=== PATIENT | male | born 1985 | race Two or more races ===

== ENCOUNTER 2018-04-04 01:17 | Inpatient (IN) | payer MEDICARE, MEDICAID ==
[~2018-04-04] VITALS: Ht 165.1 cm; Wt 102.2 kg
[2018-04-04 02:49] LABS: Basophils # (auto) 0 uL; Basophils % (auto) 0.4 % (0.0-2.0); Eosinophils # (auto) 0 uL; Eosinophils % (auto) 0.1 % (0.0-7.0); Hematocrit 32.9 % (41.0-53.0); Hemoglobin 11.2 g/dL (13.5-17.5); Lymphocytes # (auto) 1.2 uL; Lymphocytes % (auto) 12.9 % (10.0-50.0); Mean Corpuscular Hemoglobin 31.4 pg (28.0-32.0); Mean Corpuscular Volume 92.4 fL (80.0-100.0); Monocytes # (auto) 0.9 uL; Monocytes % (auto) 9.5 % (0.0-12.0); Neutrophils # (auto) 6.9 uL; Neutrophils % (auto) 77.1 % (37.0-80.0); Platelet Count (auto) 313 10^3/uL (140-450); Red Blood Cells 3.57 10^6/uL (4.5-5.90); Red Cell Distribution Width 13.2 % (11.8-14.3)
[2018-04-04] MEDS ORDERED: ONDANSETRON HCL 4 MG/2 ML VIAL IV ONE (03:00)
[2018-04-04] MEDS ORDERED: SODIUM CHLORIDE 0.9% 1,000 ML IV ONE ×2 (03:00→05:30)
[2018-04-04] MEDS ORDERED: NALBUPHINE HCL 10 MG/1ml INJECTION IV ONE (03:00)
[2018-04-04] MEDS ORDERED: cefTRIAXone 1GM/10ml IVPUSH 10 ML IV ONE (03:00)
[2018-04-04] MEDS ORDERED: ACETAMINOPHEN 325 MG TAB PO ONE (03:00)
[2018-04-04] MEDS ORDERED: SODIUM CHLORIDE 0.9% 500 ML IV ONE (04:00)
[2018-04-04 04:21] LABS: Lactic Acid w/Reflex 2.4 mmol/L (0.4-2.0)
[2018-04-04 04:38] LABS: Albumin 3.1 g/dL (3.4-5.0); Calcium 9.4 mg/dL (8.5-10.1); Potassium 3.5 mmol/L (3.5-5.1)
[2018-04-04] MEDS ORDERED: metroNIDAZOLE 500MG/100ML 100 ML IV ONE (04:45)
[2018-04-04 04:46] LABS: Bilirubin, Total 0.4 mg/dL (0.2-1.0); Total Protein 8.5 g/dL (6.4-8.2)
[2018-04-04] MEDS ORDERED: MORPHINE SULF INJ 2 MG/ML SYRINGE 1ML IV PRN (06:00)
[2018-04-04] MEDS: metroNIDAZOLE 500MG/100ML 100 ML IV SCH ×3 (06:00→22:03)
[2018-04-04] MEDS ORDERED: DEXTROSE (50%) 50ML SYRG IV PRN (06:00)
[2018-04-04] MEDS ORDERED: ACETAMINOPHEN 325 MG TAB PO PRN (06:00)
[2018-04-04] MEDS: ACCU-CHEK COMFORT CURVE STRIP VI SCH ×4 (06:00→23:45)
[2018-04-04] MEDS: InsuLIN REG 1unit/0.01ml Soln (100units/ml) SC SCH ×4 (06:00→23:45)
[2018-04-04] MEDS: SODIUM CHLORIDE 0.9% 1,000 ML IV SCH ×3 (06:00→22:03)
[2018-04-04] MEDS ORDERED: PIPERACILLIN-TAZOB 2.25GM 0.75 GM in D5W 5% 50 ML IV SCH (06:00)
[2018-04-04] MEDS ORDERED: NITROGLYCERIN 0.4 MG SL TAB SL PRN (06:00)
[2018-04-04 08:13] LABS: INR 1.07 (0.9-1.15); Partial Thromboplastin Time 33.3 sec (23.78-33.04); Prothrombin Time 11.4 sec (9.27-12.13)
[2018-04-04 08:19] LABS: Lactic Acid w/Reflex 2.7 mmol/L (0.4-2.0)
[2018-04-04] MEDS: PIPERACILLIN-TAZOB 2.25GM 50 ML IV SCH ×2 (09:01→22:03)
[2018-04-04] MEDS: MORPHINE SULF INJ 2 MG/ML SYRINGE 1ML IV PRN ×2 (09:12→16:20)
[2018-04-04 09:36] VITALS: BP 100/64
[2018-04-04 13:00] VITALS: BP 94/59
[2018-04-04 17:00] VITALS: BP 116/71
[2018-04-04] MEDS ORDERED: MULT-424 PO (17:58)
[2018-04-04] MEDS ORDERED: CALC0.5C PO (17:58)
[2018-04-04] MEDS ORDERED: GABA300C10 PO (17:58)
[2018-04-04] MEDS ORDERED: AMLO5TAB2 PO (17:58)
[2018-04-04] MEDS ORDERED: METO-159 PO (17:58)
[2018-04-04] MEDS ORDERED: SEVE800T8 PO (17:58)
[2018-04-04] MEDS ORDERED: INSUINJ2 SC ×2 (17:58)
[2018-04-04] MEDS ORDERED: LOSA100T27 PO (17:58)
[2018-04-04] MEDS ORDERED: FURO40TA4 PO (17:58)
[2018-04-04] MEDS ORDERED: CINA30TA2 PO (17:58)
[2018-04-04] MEDS ORDERED: HYDR100T22 PO (17:58)
[2018-04-04] MEDS ORDERED: INSLISPI SC (17:58)
[2018-04-04] MEDS: HYDROcodone-ACET 5/325MG TAB PO PRN ×2 (18:11→22:02)
[2018-04-04 22:00] VITALS: BP 133/83
[2018-04-05 04:54] VITALS: BP 129/78
[2018-04-05] MEDS: metroNIDAZOLE 500MG/100ML 100 ML IV SCH ×3 (06:43→22:22)
[2018-04-05] MEDS: ACCU-CHEK COMFORT CURVE STRIP VI SCH ×4 (06:44→23:45)
[2018-04-05] MEDS: InsuLIN REG 1unit/0.01ml Soln (100units/ml) SC SCH ×4 (06:44→23:56)
[2018-04-05] MEDS: SODIUM CHLORIDE 0.9% 1,000 ML IV SCH ×2 (06:44→14:00)
[2018-04-05] MEDS: HYDROcodone-ACET 5/325MG TAB PO PRN ×4 (06:52→22:21)
[2018-04-05 07:20] LABS: Basophils % (auto) 0.4 % (0.0-2.0); Eosinophils # (auto) 0 uL; Hematocrit 31.2 % (41.0-53.0); Hemoglobin 10.3 g/dL (13.5-17.5); Lymphocytes # (auto) 1.2 uL; Mean Corpuscular Hemoglobin 31.1 pg (28.0-32.0)
[2018-04-05 07:24] LABS: Potassium 4.4 mmol/L (3.5-5.1)
[2018-04-05 07:25] LABS: Basophils # (auto) 0.1 uL; Eosinophils % (auto) 0.1 % (0.0-7.0); Lymphocytes % (auto) 9.4 % (10.0-50.0); Mean Corpuscular Hgb Conc. 33.1 g/dL (32.0-36.0); Mean Corpuscular Volume 94.1 fL (80.0-100.0); Monocytes # (auto) 0.8 uL; Monocytes % (auto) 6.3 % (0.0-12.0); Neutrophils % (auto) 83.8 % (37.0-80.0); Platelet Count (auto) 303 10^3/uL (140-450); Red Blood Cells 3.32 10^6/uL (4.5-5.90); Red Cell Distribution Width 13.9 % (11.8-14.3); White Blood Cell 13.1 10^3/uL (4.4-10.8)
[2018-04-05 07:36] LABS: BUN/Creatinine Ratio 5.1; Calcium 9.5 mg/dL (8.5-10.1); Total Protein 7.6 g/dL (6.4-8.2)
[2018-04-05 07:41] LABS: Albumin 2.4 g/dL (3.4-5.0); Bilirubin, Total 0.3 mg/dL (0.2-1.0)
[2018-04-05 09:04] VITALS: BP 143/84
[2018-04-05] MEDS ORDERED: VANCOMYCIN 1GM/250ML 250 ML IV ONE (11:15)
[2018-04-05] MEDS: PIPERACILLIN-TAZOB 2.25GM 50 ML IV SCH ×2 (11:17→23:49)
[2018-04-05 13:51] VITALS: BP 128/78
[2018-04-05] MEDS: PERITONEAL DIALYSIS 2.5% SOLN 2,000 ML IP SCH ×2 (14:44→18:45)
[2018-04-05 17:00] VITALS: BP 124/77
[2018-04-05] MEDS ORDERED: INSULIN NPH Isophane (HUMAN) 1unit/0.01ml Susp(100units/ml) SC SCH (18:00)
[2018-04-05 22:00] VITALS: BP 146/76
[2018-04-05] MEDS ORDERED: HEPARIN SODIUM IP SCH (22:00)
[2018-04-05] MEDS ORDERED: [UNRECOGNIZED DRUG - OTHER] IP SCH (22:00)
[2018-04-05] MEDS ORDERED: CEFTAZIDIME IP SCH (22:00)
[2018-04-05] MEDS ORDERED: CEFAZOLIN IP SCH (22:00)
[2018-04-05] MEDS: MORPHINE SULF INJ 2 MG/ML SYRINGE 1ML IV PRN (22:22)
[2018-04-05] MEDS ORDERED: ceFAZolin 1GM/50ML 50 ML IV ONE (22:29)
[2018-04-05] MEDS ORDERED: HEPARIN 1,000 UNITS/ml 1ML VIAL ONE (22:32)
[2018-04-06] MEDS: PERITONEAL DIALYSIS 2.5% SOLN 2,000 ML IP SCH (00:25)
[2018-04-06] MEDS ORDERED: PERITONEAL DIALYSIS 2.5% SOLN 2,000 ML IP SCH ×2 (04:00→16:30)
[2018-04-06] MEDS: MORPHINE SULF INJ 2 MG/ML SYRINGE 1ML IV PRN ×4 (04:49→21:48)
[2018-04-06] MEDS: CEFAZOLIN IP SCH ×4 (04:52→21:37)
[2018-04-06] MEDS: [UNRECOGNIZED DRUG - OTHER] IP SCH ×4 (04:52→21:37)
[2018-04-06] MEDS: ACCU-CHEK COMFORT CURVE STRIP VI SCH ×4 (04:52→21:01)
[2018-04-06] MEDS: CEFTAZIDIME IP SCH ×4 (04:52→21:37)
[2018-04-06] MEDS: HEPARIN SODIUM IP SCH ×4 (04:52→21:37)
[2018-04-06 05:00] VITALS: BP 139/88
[2018-04-06] MEDS: metroNIDAZOLE 500MG/100ML 100 ML IV SCH ×3 (05:39→22:28)
[2018-04-06] MEDS: InsuLIN REG 1unit/0.01ml Soln (100units/ml) SC SCH ×4 (05:40→21:00)
[2018-04-06] MEDS ORDERED: INSULIN NPH Isophane (HUMAN) 1unit/0.01ml Susp(100units/ml) SC SCH ×2 (07:00→20:00)
[2018-04-06] MEDS ORDERED: DEXTROSE (50%) 50ML SYRG IV PRN ×2 (09:30→10:15)
[2018-04-06 09:31] VITALS: BP 132/77
[2018-04-06] MEDS: PIPERACILLIN-TAZOB 2.25GM 50 ML IV SCH ×2 (09:37→21:00)
[2018-04-06] MEDS ORDERED: InsuLIN REG 1unit/0.01ml Soln (100units/ml) SC SCH (10:00)
[2018-04-06] MEDS ORDERED: ACCU-CHEK COMFORT CURVE STRIP VI SCH (10:00)
[2018-04-06] MEDS: HYDROcodone-ACET 5/325MG TAB PO PRN ×3 (11:21→22:18)
[2018-04-06 13:38] VITALS: BP 145/87
[2018-04-06] MEDS ORDERED: [UNRECOGNIZED DRUG - OTHER] IP SCH (16:00)
[2018-04-06] MEDS ORDERED: CEFTAZIDIME IP SCH (16:00)
[2018-04-06] MEDS ORDERED: CEFAZOLIN IP SCH (16:00)
[2018-04-06] MEDS ORDERED: HEPARIN SODIUM IP SCH (16:00)
[2018-04-06 17:00] VITALS: BP 152/100
[2018-04-06 20:00] VITALS: BP 142/95
[2018-04-06] MEDS: INSULIN NPH Isophane (HUMAN) 1unit/0.01ml Susp(100units/ml) SC SCH (20:59)
[2018-04-06 22:00] VITALS: BP 142/95
[2018-04-07] VITALS (7 sets, daily range): BP systolic 137–163; BP diastolic 63–105
[2018-04-07] MEDS: HYDROcodone-ACET 5/325MG TAB PO PRN ×4 (03:38→22:38)
[2018-04-07] MEDS: MORPHINE SULF INJ 2 MG/ML SYRINGE 1ML IV PRN ×4 (03:38→22:00)
[2018-04-07] MEDS: CEFAZOLIN IP SCH ×9 (04:20→22:50)
[2018-04-07] MEDS: CEFTAZIDIME IP SCH ×9 (04:20→22:50)
[2018-04-07] MEDS: [UNRECOGNIZED DRUG - OTHER] IP SCH ×9 (04:20→22:50)
[2018-04-07] MEDS: HEPARIN SODIUM IP SCH ×9 (04:20→22:50)
[2018-04-07] MEDS: INSULIN NPH Isophane (HUMAN) 1unit/0.01ml Susp(100units/ml) SC SCH ×2 (06:36→18:24)
[2018-04-07] MEDS: ACCU-CHEK COMFORT CURVE STRIP VI SCH ×4 (06:36→22:00)
[2018-04-07] MEDS: metroNIDAZOLE 500MG/100ML 100 ML IV SCH ×3 (06:37→21:29)
[2018-04-07] MEDS: InsuLIN REG 1unit/0.01ml Soln (100units/ml) SC SCH ×4 (06:37→22:39)
[2018-04-07 07:44] LABS: Basophils # (auto) 0 uL; Basophils % (auto) 0.4 % (0.0-2.0); Eosinophils # (auto) 0.1 uL; Eosinophils % (auto) 1.6 % (0.0-7.0); Hematocrit 26.1 % (41.0-53.0); Hemoglobin 8.7 g/dL (13.5-17.5); Lymphocytes % (auto) 10.7 % (10.0-50.0); Mean Corpuscular Hemoglobin 31.8 pg (28.0-32.0); Mean Corpuscular Hgb Conc. 33.5 g/dL (32.0-36.0); Monocytes # (auto) 0.9 uL; Monocytes % (auto) 9.7 % (0.0-12.0); Neutrophils # (auto) 7.1 uL; Neutrophils % (auto) 77.6 % (37.0-80.0); Platelet Count (auto) 309 10^3/uL (140-450); Red Blood Cells 2.75 10^6/uL (4.5-5.90); White Blood Cell 9.1 10^3/uL (4.4-10.8)
[2018-04-07 08:10] LABS: Albumin 2.1 g/dL (3.4-5.0); BUN/Creatinine Ratio 5.7; Bilirubin, Total 1.2 mg/dL (0.2-1.0); Calcium 9.1 mg/dL (8.5-10.1); Potassium 3.6 mmol/L (3.5-5.1)
[2018-04-07] MEDS: ONDANSETRON HCL 4 MG/2 ML VIAL IV PRN (20:00)
[2018-04-08] MEDS: MORPHINE SULF INJ 2 MG/ML SYRINGE 1ML IV PRN (03:32)
[2018-04-08] MEDS: HYDROcodone-ACET 5/325MG TAB PO PRN ×3 (04:09→20:35)
[2018-04-08] MEDS: HEPARIN SODIUM IP SCH ×8 (04:18→17:00)
[2018-04-08] MEDS: CEFAZOLIN IP SCH ×8 (04:18→17:00)
[2018-04-08] MEDS: CEFTAZIDIME IP SCH ×8 (04:18→17:00)
[2018-04-08] MEDS: [UNRECOGNIZED DRUG - OTHER] IP SCH ×8 (04:18→17:00)
[2018-04-08 05:00] VITALS: BP 151/92
[2018-04-08 05:38] LABS: Basophils # (auto) 0.1 uL; Basophils % (auto) 0.6 % (0.0-2.0); Eosinophils # (auto) 0.3 uL; Eosinophils % (auto) 3.1 % (0.0-7.0); Hematocrit 26.2 % (41.0-53.0); Hemoglobin 8.9 g/dL (13.5-17.5); Lymphocytes # (auto) 0.8 uL; Lymphocytes % (auto) 8.1 % (10.0-50.0); Mean Corpuscular Hemoglobin 32.1 pg (28.0-32.0); Mean Corpuscular Hgb Conc. 34.1 g/dL (32.0-36.0); Mean Corpuscular Volume 94.3 fL (80.0-100.0); Neutrophils # (auto) 8.1 uL; Neutrophils % (auto) 78.2 % (37.0-80.0); Platelet Count (auto) 334 10^3/uL (140-450); Red Blood Cells 2.78 10^6/uL (4.5-5.90); White Blood Cell 10.3 10^3/uL (4.4-10.8)
[2018-04-08 06:04] LABS: Albumin 2.1 g/dL (3.4-5.0); BUN/Creatinine Ratio 5.6; Calcium 9.2 mg/dL (8.5-10.1); Potassium 3.1 mmol/L (3.5-5.1); Total Protein 6.9 g/dL (6.4-8.2)
[2018-04-08] MEDS: metroNIDAZOLE 500MG/100ML 100 ML IV SCH ×3 (06:26→21:34)
[2018-04-08] MEDS: ACCU-CHEK COMFORT CURVE STRIP VI SCH ×4 (06:27→21:53)
[2018-04-08] MEDS: InsuLIN REG 1unit/0.01ml Soln (100units/ml) SC SCH ×4 (06:39→21:53)
[2018-04-08] MEDS: INSULIN NPH Isophane (HUMAN) 1unit/0.01ml Susp(100units/ml) SC SCH ×2 (06:39→17:37)
[2018-04-08 08:30] VITALS: BP 143/93
[2018-04-08 09:00] VITALS: BP 143/93
[2018-04-08 12:52] VITALS: BP 139/91
[2018-04-08 17:00] VITALS: BP 154/97
[2018-04-08] MEDS ORDERED: EPOETIN ALFA 10,000 UNIT/1 ML VIAL IV ONE (20:00)
[2018-04-08] MEDS ORDERED: SODIUM CHL 0.9% 1000 ML BAG XX ONE (20:00)
[2018-04-08] MEDS: LEVOFLOXACIN 250MG 50 ML IV SCH (20:19)
[2018-04-08] MEDS: ONDANSETRON HCL 4 MG/2 ML VIAL IV PRN (20:32)
[2018-04-08 22:00] VITALS: BP 155/95
[2018-04-08] MEDS: cefTAZidime 1 GM in SODIUM CHL 0.9% 50 ML IV SCH (22:51)
[2018-04-09] MEDS: HYDROcodone-ACET 5/325MG TAB PO PRN (02:21)
[2018-04-09] MEDS: metroNIDAZOLE 500MG/100ML 100 ML IV SCH ×3 (04:58→22:00)
[2018-04-09 05:53] LABS: Hematocrit 27.2 % (41.0-53.0); Hemoglobin 8.9 g/dL (13.5-17.5); Mean Corpuscular Hemoglobin 30.7 pg (28.0-32.0); Mean Corpuscular Hgb Conc. 32.7 g/dL (32.0-36.0); Mean Corpuscular Volume 93.9 fL (80.0-100.0); Platelet Count (auto) 377 10^3/uL (140-450); Red Cell Distribution Width 14.2 % (11.8-14.3)
[2018-04-09 05:59] LABS: Basophils % (manual) 0 (0.0-2.0); Blast Cells 0; Metamyelocytes % 0; Myelocytes % 0; Promyelocytes % 0; Reactive Lymphocytes 0
[2018-04-09 06:00] VITALS: BP 141/88
[2018-04-09 06:08] LABS: INR 1.23 (0.9-1.15); Partial Thromboplastin Time 31.2 sec (23.78-33.04)
[2018-04-09 06:32] LABS: Albumin 2.1 g/dL (3.4-5.0); BUN/Creatinine Ratio 5.5; Calcium 9.2 mg/dL (8.5-10.1)
[2018-04-09 06:38] LABS: Potassium 2.9 mmol/L (3.5-5.1)
[2018-04-09 06:44] LABS: Band Neutrophils % (manual) 1; Eosinophils % (manual) 2 (0-7); Lymphocytes % (manual) 13 (10.0-50.0); Monocytes % (manual) 13 (0-12)
[2018-04-09] MEDS: cefTAZidime 1 GM in SODIUM CHL 0.9% 50 ML IV SCH ×2 (06:52→14:26)
[2018-04-09] MEDS: ACCU-CHEK COMFORT CURVE STRIP VI SCH ×4 (06:52→22:32)
[2018-04-09] MEDS: INSULIN NPH Isophane (HUMAN) 1unit/0.01ml Susp(100units/ml) SC SCH ×2 (06:52→18:00)
[2018-04-09] MEDS: InsuLIN REG 1unit/0.01ml Soln (100units/ml) SC SCH ×4 (06:53→22:00)
[2018-04-09] MEDS ORDERED: POTASSIUM CHL 20 Meq TABLET PO ONE (07:00)
[2018-04-09] MEDS: Pro-Stat SF 30ml Vanilla PO SCH ×2 (08:00→18:15)
[2018-04-09 09:00] VITALS: BP 141/93
[2018-04-09 13:00] VITALS: BP 157/94
[2018-04-09 16:54] VITALS: BP 170/92
[2018-04-09] MEDS ORDERED: cefTAZidime 1 GM in SODIUM CHL 0.9% 50 ML IV PRN (17:30)
[2018-04-09 22:04] VITALS: BP 152/93
[2018-04-10 04:51] VITALS: BP 147/93
[2018-04-10] MEDS: INSULIN NPH Isophane (HUMAN) 1unit/0.01ml Susp(100units/ml) SC SCH ×2 (05:49→18:00)
[2018-04-10] MEDS: ACCU-CHEK COMFORT CURVE STRIP VI SCH ×4 (05:49→22:00)
[2018-04-10] MEDS: metroNIDAZOLE 500MG/100ML 100 ML IV SCH ×3 (05:49→21:57)
[2018-04-10] MEDS: InsuLIN REG 1unit/0.01ml Soln (100units/ml) SC SCH ×4 (05:50→22:00)
[2018-04-10] MEDS ORDERED: POVIDONE IODINE 10 % TOPICAL OINT 30GM TOP ONE (06:57)
[2018-04-10] MEDS ORDERED: LIDOCAINE 1% HCL (LOCAL ANESTH.) INJ 20ML MDV ONE (06:57)
[2018-04-10 07:11] LABS: INR 1.49 (0.9-1.15); Partial Thromboplastin Time 25.7 sec (23.78-33.04); Prothrombin Time 15.6 sec (9.27-12.13)
[2018-04-10] MEDS ORDERED: ONDANSETRON HCL 4 MG/2 ML VIAL ONE (07:11)
[2018-04-10] MEDS ORDERED: METOPROLOL TARTRATE 1MG/1ML-5ML VIAL IV ONE (07:11)
[2018-04-10] MEDS ORDERED: ePHEDrine SULFATE 50 MG/ML AMP ONE (07:11)
[2018-04-10] MEDS ORDERED: PHENYLEPHRINE HCL 10 MG/ML VL ONE (07:11)
[2018-04-10] MEDS ORDERED: METOCLOPRAMIDE HCL 5MG/ml INJ 2ml VIAL ONE (07:11)
[2018-04-10] MEDS ORDERED: PROPOFOL 10 MG/ML 20 ML IV ONE (07:11)
[2018-04-10] MEDS ORDERED: fentaNYL CITRATE 100 MCG/2 ML VL ONE (07:11)
[2018-04-10] MEDS ORDERED: SODIUM CHLORIDE LOCK 20 ML ONE (07:14)
[2018-04-10] MEDS ORDERED: CISATRACURIUM BESYLATE (2MG/ML) 5ML VIAL IV ONE (07:21)
[2018-04-10] MEDS ORDERED: HEPARIN 1,000 UNITS/ml 1ML VIAL ONE (07:25)
[2018-04-10 07:41] LABS: Basophils # (auto) 0 uL; Basophils % (auto) 0.1 % (0.0-2.0); Eosinophils # (auto) 0.1 uL; Eosinophils % (auto) 0.8 % (0.0-7.0); Hematocrit 27.6 % (41.0-53.0); Hemoglobin 9.3 g/dL (13.5-17.5); Lymphocytes # (auto) 1.2 uL; Lymphocytes % (auto) 6.3 % (10.0-50.0); Mean Corpuscular Hemoglobin 31.5 pg (28.0-32.0); Mean Corpuscular Hgb Conc. 33.7 g/dL (32.0-36.0); Mean Corpuscular Volume 93.5 fL (80.0-100.0); Monocytes # (auto) 1.5 uL; Monocytes % (auto) 8.1 % (0.0-12.0); Neutrophils # (auto) 16.2 uL; Neutrophils % (auto) 84.7 % (37.0-80.0); Platelet Count (auto) 451 10^3/uL (140-450); Red Blood Cells 2.96 10^6/uL (4.5-5.90); Red Cell Distribution Width 14.1 % (11.8-14.3); White Blood Cell 19.2 10^3/uL (4.4-10.8)
[2018-04-10] MEDS: Pro-Stat SF 30ml Vanilla PO SCH ×2 (08:00→18:45)
[2018-04-10 08:03] LABS: Albumin 2.2 g/dL (3.4-5.0); BUN/Creatinine Ratio 5.4; Bilirubin, Total 0.8 mg/dL (0.2-1.0); Calcium 9.5 mg/dL (8.5-10.1); Potassium 3.8 mmol/L (3.5-5.1); Total Protein 7.2 g/dL (6.4-8.2)
[2018-04-10] MEDS ORDERED: ceFAZolin 1GM/50ML 100 ML IV ONE (08:34)
[2018-04-10] MEDS ORDERED: NEOSTIGMINE 1 MG/ML INJ (10mg/10ML VIAL) ONE ×2 (09:07→09:08)
[2018-04-10] MEDS ORDERED: GLYCOPYRROLATE 0.2 MG/ML 1ML VIAL ONE ×2 (09:07→09:08)
[2018-04-10] MEDS ORDERED: ePHEDrine SULFATE 50 MG/ML AMP IV PRN (09:45)
[2018-04-10] MEDS ORDERED: LABETALOL HCL 5 MG/ML 4ML SYRINGE IV PRN (09:45)
[2018-04-10] MEDS ORDERED: ACCU-CHEK COMFORT CURVE STRIP VI ONE (09:45)
[2018-04-10] MEDS ORDERED: METOCLOPRAMIDE HCL 5MG/ml INJ 2ml VIAL IV ONE (09:45)
[2018-04-10] MEDS ORDERED: ONDANSETRON HCL 4 MG/2 ML VIAL IV ONE (09:45)
[2018-04-10] MEDS ORDERED: KETOROLAC TROMETH 30 MG/ML 1ML VIAL IV ONE (09:45)
[2018-04-10] MEDS ORDERED: NALOXONE HCL 0.4 MG/ML VIAL IV PRN (09:45)
[2018-04-10] MEDS ORDERED: hydrALAZINE HCL 20 MG/ML VL IV PRN (09:45)
[2018-04-10] MEDS ORDERED: fentaNYL CITRATE 100 MCG/2 ML VL IV ONE (10:00)
[2018-04-10 13:00] VITALS: BP 166/90
[2018-04-10 17:00] VITALS: BP 154/84
[2018-04-10 21:54] VITALS: BP 162/91
[2018-04-10] MEDS: LEVOFLOXACIN 250MG 50 ML IV SCH (21:57)
[2018-04-11 04:42] VITALS: BP 151/92
[2018-04-11] MEDS: metroNIDAZOLE 500MG/100ML 100 ML IV SCH ×3 (05:00→21:48)
[2018-04-11] MEDS: ACCU-CHEK COMFORT CURVE STRIP VI SCH ×4 (06:15→21:52)
[2018-04-11] MEDS: INSULIN NPH Isophane (HUMAN) 1unit/0.01ml Susp(100units/ml) SC SCH ×2 (06:15→18:27)
[2018-04-11] MEDS: InsuLIN REG 1unit/0.01ml Soln (100units/ml) SC SCH ×4 (06:15→21:52)
[2018-04-11] MEDS ORDERED: LIDOCAINE 2%HCL (LOCAL ANESTH.) INJ 10ml MDV ONE (07:58)
[2018-04-11] MEDS: Pro-Stat SF 30ml Vanilla PO SCH ×2 (08:00→18:25)
[2018-04-11] MEDS ORDERED: MIDAZOLAM HCL 1MG/1ML-2 ML VIAL ONE (08:33)
[2018-04-11] MEDS ORDERED: fentaNYL CITRATE 100 MCG/2 ML VL ONE (08:33)
[2018-04-11] MEDS ORDERED: HEPARIN SODIUM (PORCINE) 5000 UNITS/ML 1ML VIAL ONE (08:41)
[2018-04-11 09:00] VITALS: BP 167/95
[2018-04-11] MEDS ORDERED: METOPROLOL TARTRATE 1MG/1ML-5ML VIAL IV ONE (09:02)
[2018-04-11 13:00] VITALS: BP 140/79
[2018-04-11 17:00] VITALS: BP 127/90
[2018-04-11] MEDS ORDERED: EPOETIN ALFA 10,000 UNIT/1 ML VIAL IV ONE (17:30)
[2018-04-11] MEDS: FUROSEMIDE 40 MG TAB PO SCH (18:26)
[2018-04-11] MEDS: HYDROcodone-ACET 5/325MG TAB PO PRN (19:05)
[2018-04-11 21:47] VITALS: BP 183/103
[2018-04-11] MEDS: METOPROLOL TARTRATE 50 MG TAB PO SCH (21:51)
[2018-04-11] MEDS: hydrALAZINE HCL 25 MG TAB PO SCH (21:52)
[2018-04-11] MEDS: MORPHINE SULF INJ 2 MG/ML SYRINGE 1ML IV PRN (22:49)
[2018-04-12 05:01] VITALS: BP 171/96
[2018-04-12] MEDS: metroNIDAZOLE 500MG/100ML 100 ML IV SCH ×3 (05:08→21:17)
[2018-04-12] MEDS: MORPHINE SULF INJ 2 MG/ML SYRINGE 1ML IV PRN (05:37)
[2018-04-12] MEDS: FUROSEMIDE 40 MG TAB PO SCH ×2 (05:38→17:27)
[2018-04-12 06:36] LABS: Basophils # (auto) 0.1 uL; Hematocrit 25.6 % (41.0-53.0); Hemoglobin 8.4 g/dL (13.5-17.5); Mean Corpuscular Hgb Conc. 32.8 g/dL (32.0-36.0); Monocytes # (auto) 1.6 uL; Neutrophils # (auto) 18.7 uL
[2018-04-12 06:38] LABS: Basophils % (auto) 0.4 % (0.0-2.0); Eosinophils # (auto) 0.2 uL; Eosinophils % (auto) 0.7 % (0.0-7.0); Lymphocytes % (auto) 4.7 % (10.0-50.0); Mean Corpuscular Hemoglobin 30.6 pg (28.0-32.0); Mean Corpuscular Volume 93.4 fL (80.0-100.0); Monocytes % (auto) 7.4 % (0.0-12.0); Neutrophils % (auto) 86.8 % (37.0-80.0); Platelet Count (auto) 459 10^3/uL (140-450); Red Blood Cells 2.74 10^6/uL (4.5-5.90); Red Cell Distribution Width 14.2 % (11.8-14.3); White Blood Cell 21.6 10^3/uL (4.4-10.8)
[2018-04-12] MEDS: ACCU-CHEK COMFORT CURVE STRIP VI SCH ×4 (06:52→21:43)
[2018-04-12] MEDS: INSULIN NPH Isophane (HUMAN) 1unit/0.01ml Susp(100units/ml) SC SCH ×2 (06:52→17:27)
[2018-04-12] MEDS: InsuLIN REG 1unit/0.01ml Soln (100units/ml) SC SCH ×4 (06:52→21:42)
[2018-04-12] MEDS: HYDROcodone-ACET 5/325MG TAB PO PRN (06:55)
[2018-04-12 07:06] LABS: BUN/Creatinine Ratio 4.7; Bilirubin, Total 0.7 mg/dL (0.2-1.0); Potassium 3.1 mmol/L (3.5-5.1); Total Protein 7.1 g/dL (6.4-8.2)
[2018-04-12] MEDS: Pro-Stat SF 30ml Vanilla PO SCH ×2 (07:43→17:26)
[2018-04-12] MEDS: cloNIDine HCL 0.1 MG TAB PO PRN ×2 (08:10→12:06)
[2018-04-12 08:34] VITALS: BP 175/96
[2018-04-12] MEDS: cefTAZidime 1 GM in SODIUM CHL 0.9% 50 ML IV SCH (12:06)
[2018-04-12] MEDS: LOSARTAN POTASSIUM 50 MG TAB PO SCH (12:07)
[2018-04-12] MEDS: hydrALAZINE HCL 25 MG TAB PO SCH ×2 (12:07→21:17)
[2018-04-12] MEDS: amLODIPine BESYLATE 5 MG TAB PO SCH (12:08)
[2018-04-12] MEDS: METOPROLOL TARTRATE 50 MG TAB PO SCH ×2 (12:08→21:16)
[2018-04-12 12:41] VITALS: BP 159/96
[2018-04-12] MEDS ORDERED: DOCUSATE SOD 100 MG CAP PO PRN (14:15)
[2018-04-12 16:51] VITALS: BP 136/83
[2018-04-12] MEDS: LEVOFLOXACIN 250MG 50 ML IV SCH (21:17)
[2018-04-12 21:35] VITALS: BP 154/91
[2018-04-13 05:00] VITALS: BP 143/85
[2018-04-13] MEDS: InsuLIN REG 1unit/0.01ml Soln (100units/ml) SC SCH ×4 (05:37→22:00)
[2018-04-13] MEDS: FUROSEMIDE 40 MG TAB PO SCH ×2 (05:37→17:49)
[2018-04-13] MEDS: metroNIDAZOLE 500MG/100ML 100 ML IV SCH ×3 (05:37→22:55)
[2018-04-13] MEDS: ACCU-CHEK COMFORT CURVE STRIP VI SCH ×3 (05:38→17:56)
[2018-04-13] MEDS: INSULIN NPH Isophane (HUMAN) 1unit/0.01ml Susp(100units/ml) SC SCH ×2 (05:38→17:57)
[2018-04-13 06:39] LABS: Hemoglobin 8.3 g/dL (13.5-17.5)
[2018-04-13 06:41] LABS: Basophils # (auto) 0 uL; Basophils % (auto) 0.2 % (0.0-2.0); Eosinophils # (auto) 0.1 uL; Eosinophils % (auto) 0.7 % (0.0-7.0); Hematocrit 24.9 % (41.0-53.0); Lymphocytes # (auto) 1.1 uL; Lymphocytes % (auto) 5.2 % (10.0-50.0); Mean Corpuscular Hemoglobin 31.4 pg (28.0-32.0); Mean Corpuscular Hgb Conc. 33.4 g/dL (32.0-36.0); Mean Corpuscular Volume 93.9 fL (80.0-100.0); Monocytes # (auto) 1.6 uL; Monocytes % (auto) 7.5 % (0.0-12.0); Neutrophils # (auto) 18.1 uL; Neutrophils % (auto) 86.4 % (37.0-80.0); Platelet Count (auto) 439 10^3/uL (140-450); Red Blood Cells 2.65 10^6/uL (4.5-5.90); Red Cell Distribution Width 14.4 % (11.8-14.3); White Blood Cell 20.9 10^3/uL (4.4-10.8)
[2018-04-13 06:54] LABS: Albumin 1.9 g/dL (3.4-5.0); BUN/Creatinine Ratio 5.3; Calcium 8.9 mg/dL (8.5-10.1); Potassium 3.2 mmol/L (3.5-5.1)
[2018-04-13 07:04] LABS: Bilirubin, Total 0.6 mg/dL (0.2-1.0); Total Protein 7.1 g/dL (6.4-8.2)
[2018-04-13] MEDS: Pro-Stat SF 30ml Vanilla PO SCH ×2 (08:01→17:49)
[2018-04-13 09:00] VITALS: BP 147/84
[2018-04-13] MEDS: cefTAZidime 1 GM in SODIUM CHL 0.9% 50 ML IV SCH (11:22)
[2018-04-13] MEDS: METOPROLOL TARTRATE 50 MG TAB PO SCH ×2 (11:23→22:58)
[2018-04-13] MEDS: hydrALAZINE HCL 25 MG TAB PO SCH ×2 (11:23→22:58)
[2018-04-13] MEDS: LOSARTAN POTASSIUM 50 MG TAB PO SCH (11:24)
[2018-04-13] MEDS: amLODIPine BESYLATE 5 MG TAB PO SCH (11:25)
[2018-04-13 13:00] VITALS: BP 140/78
[2018-04-13 17:00] VITALS: BP 128/77
[2018-04-13] MEDS ORDERED: cefTAZidime 1 GM in SODIUM CHL 0.9% 50 ML IV SCH (17:00)
[2018-04-13 22:00] VITALS: BP 145/80
[2018-04-14] MEDS: ACCU-CHEK COMFORT CURVE STRIP VI SCH ×5 (00:11→21:31)
[2018-04-14 05:00] VITALS: BP_SYST 141; BP_SYST 147; BP_DIAS 84; BP_DIAS 85
[2018-04-14] MEDS: metroNIDAZOLE 500MG/100ML 100 ML IV SCH ×3 (05:42→21:30)
[2018-04-14] MEDS: InsuLIN REG 1unit/0.01ml Soln (100units/ml) SC SCH ×4 (05:43→21:31)
[2018-04-14] MEDS: INSULIN NPH Isophane (HUMAN) 1unit/0.01ml Susp(100units/ml) SC SCH ×2 (05:43→18:53)
[2018-04-14 05:47] LABS: Basophils # (auto) 0.1 uL; Eosinophils # (auto) 0.3 uL; Eosinophils % (auto) 1.6 % (0.0-7.0); Monocytes # (auto) 1.5 uL
[2018-04-14 05:51] LABS: Basophils % (auto) 0.5 % (0.0-2.0); Hematocrit 25.8 % (41.0-53.0); Hemoglobin 8.4 g/dL (13.5-17.5); Lymphocytes # (auto) 1.4 uL; Lymphocytes % (auto) 7.4 % (10.0-50.0); Mean Corpuscular Hemoglobin 30.7 pg (28.0-32.0); Mean Corpuscular Hgb Conc. 32.7 g/dL (32.0-36.0); Monocytes % (auto) 7.8 % (0.0-12.0); Neutrophils # (auto) 15.6 uL; Neutrophils % (auto) 82.7 % (37.0-80.0); Platelet Count (auto) 462 10^3/uL (140-450); Red Blood Cells 2.74 10^6/uL (4.5-5.90); Red Cell Distribution Width 14.2 % (11.8-14.3); White Blood Cell 18.8 10^3/uL (4.4-10.8)
[2018-04-14] MEDS: FUROSEMIDE 40 MG TAB PO SCH ×2 (06:00→18:52)
[2018-04-14 06:14] LABS: Albumin 1.9 g/dL (3.4-5.0); BUN/Creatinine Ratio 5.9; Potassium 3.9 mmol/L (3.5-5.1)
[2018-04-14 06:21] LABS: Bilirubin, Total 0.6 mg/dL (0.2-1.0); Total Protein 6.8 g/dL (6.4-8.2)
[2018-04-14 08:00] VITALS: BP 152/88
[2018-04-14] MEDS: Pro-Stat SF 30ml Vanilla PO SCH ×2 (08:00→18:00)
[2018-04-14] MEDS ORDERED: SODIUM CHL 0.9% 1000 ML BAG XX ONE (08:15)
[2018-04-14] MEDS: hydrALAZINE HCL 25 MG TAB PO SCH ×2 (10:00→21:33)
[2018-04-14] MEDS: METOPROLOL TARTRATE 50 MG TAB PO SCH ×2 (12:11→21:31)
[2018-04-14] MEDS: LOSARTAN POTASSIUM 50 MG TAB PO SCH (12:11)
[2018-04-14] MEDS: amLODIPine BESYLATE 5 MG TAB PO SCH (12:12)
[2018-04-14 12:42] VITALS: BP 137/73
[2018-04-14] MEDS: ALUM & MAG HYDROX-SIMETH LIQ(MAALOX) 30 ML PO PRN ×2 (15:42→21:30)
[2018-04-14] MEDS ORDERED: cefTAZidime 1 GM in SODIUM CHL 0.9% 50 ML IV SCH (16:00)
[2018-04-14] MEDS ORDERED: cefTAZidime 1 GM in SODIUM CHL 0.9% 50 ML IV ONE (17:00)
[2018-04-14 17:51] VITALS: BP 120/75
[2018-04-14] MEDS: LEVOFLOXACIN 250MG 50 ML IV SCH (21:30)
[2018-04-14] MEDS: HYDROcodone-ACET 5/325MG TAB PO PRN (21:32)
[2018-04-14 22:56] VITALS: BP 126/79
[2018-04-15 05:00] VITALS: BP 128/81
[2018-04-15] MEDS: FUROSEMIDE 40 MG TAB PO SCH (05:34)
[2018-04-15] MEDS: metroNIDAZOLE 500MG/100ML 100 ML IV SCH ×2 (05:35→13:10)
[2018-04-15] MEDS: InsuLIN REG 1unit/0.01ml Soln (100units/ml) SC SCH ×2 (05:37→12:18)
[2018-04-15] MEDS: INSULIN NPH Isophane (HUMAN) 1unit/0.01ml Susp(100units/ml) SC SCH (05:39)
[2018-04-15] MEDS: ACCU-CHEK COMFORT CURVE STRIP VI SCH ×2 (05:41→11:25)
[2018-04-15] MEDS: Pro-Stat SF 30ml Vanilla PO SCH (07:10)
[2018-04-15 07:28] LABS: Basophils # (auto) 0.1 uL; Hemoglobin 8.8 g/dL (13.5-17.5); Monocytes # (auto) 1.4 uL; Neutrophils # (auto) 16.1 uL
[2018-04-15 07:30] LABS: Basophils % (auto) 0.5 % (0.0-2.0); Eosinophils # (auto) 0.1 uL; Eosinophils % (auto) 0.6 % (0.0-7.0); Hematocrit 26.9 % (41.0-53.0); Lymphocytes # (auto) 1.7 uL; Lymphocytes % (auto) 8.8 % (10.0-50.0); Mean Corpuscular Hemoglobin 30.8 pg (28.0-32.0); Mean Corpuscular Hgb Conc. 32.8 g/dL (32.0-36.0); Mean Corpuscular Volume 93.7 fL (80.0-100.0); Monocytes % (auto) 7.3 % (0.0-12.0); Neutrophils % (auto) 82.8 % (37.0-80.0); Platelet Count (auto) 526 10^3/uL (140-450); Red Blood Cells 2.86 10^6/uL (4.5-5.90); Red Cell Distribution Width 14.2 % (11.8-14.3); White Blood Cell 19.4 10^3/uL (4.4-10.8)
[2018-04-15 07:47] LABS: Albumin 2.2 g/dL (3.4-5.0); BUN/Creatinine Ratio 5.7; Bilirubin, Total 0.9 mg/dL (0.2-1.0); Calcium 9.2 mg/dL (8.5-10.1); Potassium 3.2 mmol/L (3.5-5.1); Total Protein 7.6 g/dL (6.4-8.2)
[2018-04-15 08:00] VITALS: BP 119/72
[2018-04-15] MEDS: ALUM & MAG HYDROX-SIMETH LIQ(MAALOX) 30 ML PO PRN ×2 (09:14→15:22)
[2018-04-15] MEDS: hydrALAZINE HCL 25 MG TAB PO SCH (09:15)
[2018-04-15] MEDS: amLODIPine BESYLATE 5 MG TAB PO SCH (09:15)
[2018-04-15] MEDS: LOSARTAN POTASSIUM 50 MG TAB PO SCH (09:16)
[2018-04-15] MEDS: METOPROLOL TARTRATE 50 MG TAB PO SCH (09:16)
[2018-04-15 12:06] VITALS: BP 137/80
[2018-04-15 15:28] VITALS: BP 137/80
== END 2018-04-15 16:15 | disposition home or self-care (01) | DRG 981 ==
LOC: TELE-CENTR 09:43
PROVIDERS: ADMIT Nurse Practitioner; ATTEND Family Medicine
PROC: 3E1M39Z Irrigation of Peritoneal Cavity using Dialysate, Percutaneous Approach (ICD-10-PCS; principal; 2018-04-04)
PROC: 0WPG03Z Removal of Infusion Device from Peritoneal Cavity, Open Approach (ICD-10-PCS; 2018-04-10)
PROC: 5A1D70Z Performance of Urinary Filtration, Intermittent, Less than 6 Hours Per Day (ICD-10-PCS; 2018-04-11)
PROC: 0JH63XZ Insertion of Tunneled Vascular Access Device into Chest Subcutaneous Tissue and Fascia, Percutaneous Approach (ICD-10-PCS; 2018-04-11)
PROC: 02H633Z Insertion of Infusion Device into Right Atrium, Percutaneous Approach (ICD-10-PCS; 2018-04-11)
PROC: B2141ZZ Fluoroscopy of Right Heart using Low Osmolar Contrast (ICD-10-PCS; 2018-04-11)
PROC: B244YZZ Ultrasonography of Right Heart using Other Contrast (ICD-10-PCS; 2018-04-11)
PROC: 5A1D70Z Performance of Urinary Filtration, Intermittent, Less than 6 Hours Per Day (ICD-10-PCS; 2018-04-14)
DX: T85.71XA Infection and inflammatory reaction due to peritoneal dialysis catheter, initial encounter (principal); A41.9 Sepsis, unspecified organism; N18.6 End stage renal disease; R65.21 Severe sepsis with septic shock; K65.9 Peritonitis, unspecified; I13.2 Hypertensive heart and chronic kidney disease with heart failure and with stage 5 chronic kidney disease, or end stage renal disease; Y84.8 Other medical procedures as the cause of abnormal reaction of the patient, or of later complication, without mention of misadventure at the time of the procedure; Y92.89 Other specified places as the place of occurrence of the external cause; D64.9 Anemia, unspecified; I50.9 Heart failure, unspecified; E11.21 Type 2 diabetes mellitus with diabetic nephropathy; B96.89 Other specified bacterial agents as the cause of diseases classified elsewhere; K21.9 Gastro-esophageal reflux disease without esophagitis; B96.1 Klebsiella pneumoniae [K. pneumoniae] as the cause of diseases classified elsewhere; E11.22 Type 2 diabetes mellitus with diabetic chronic kidney disease; E11.319 Type 2 diabetes mellitus with unspecified diabetic retinopathy without macular edema; E11.40 Type 2 diabetes mellitus with diabetic neuropathy, unspecified; E66.01 Morbid (severe) obesity due to excess calories; Z82.49 Family history of ischemic heart disease and other diseases of the circulatory system; E87.6 Hypokalemia; Z83.3 Family history of diabetes mellitus; Z99.2 Dependence on renal dialysis; Z82.0 Family history of epilepsy and other diseases of the nervous system; Z79.4 Long term (current) use of insulin
CPT/HCPCS: 36415; 71045; 71250; 74176; 76000; 76705; 76942; 77002; 80053; 82962; 83036; 83605; 85007; 85025; 85027; 85610; 85730; 86850; 86900; 86901; 87040; 87070; 87077; 87081; 87086; 87186; 87340; 89051; 90935; 96361; 96365; 96375; 99152; A6257; J0690; J0696; J0885; J1642; J1815; J2001; J2250; J2405; J2543; J2704; J3490

== ENCOUNTER 2018-04-25 15:40 | Inpatient (IN) | payer MEDICARE, MEDICAID ==
[~2018-04-25] VITALS: Ht 165.1 cm; Wt 93.0 kg
[~2018-04-25 15:40] MED LIST: AMLO5TAB2 PO; CALC0.5C PO; CINA30TA2 PO; FURO40TA4 PO; GABA300C10 PO; HYDR100T22 PO; INSLISPI SC; INSUINJ2 SC; LOSA100T27 PO; METO-159 PO; MULT-424 PO; SEVE800T8 PO
[2018-04-25] MEDS ORDERED: METOPROLOL TARTRATE 1MG/1ML-5ML VIAL IV ONE (16:45)
[2018-04-25] MEDS ORDERED: LORazepam 0.5 MG TAB PO ONE (16:45)
[2018-04-25 17:06] LABS: Basophils # (auto) 0.1 uL; Basophils % (auto) 0.6 % (0.0-2.0); Eosinophils # (auto) 0.1 uL; Eosinophils % (auto) 0.6 % (0.0-7.0); Hematocrit 27.7 % (41.0-53.0); Hemoglobin 8.9 g/dL (13.5-17.5); Mean Corpuscular Volume 95.6 fL (80.0-100.0); Monocytes # (auto) 1.8 uL; White Blood Cell 15.4 10^3/uL (4.4-10.8)
[2018-04-25 17:07] LABS: Lymphocytes # (auto) 1.8 uL; Lymphocytes % (auto) 11.9 % (10.0-50.0); Mean Corpuscular Hemoglobin 30.8 pg (28.0-32.0); Mean Corpuscular Hgb Conc. 32.2 g/dL (32.0-36.0); Monocytes % (auto) 11.6 % (0.0-12.0); Neutrophils # (auto) 11.6 uL; Neutrophils % (auto) 75.3 % (37.0-80.0); Platelet Count (auto) 574 10^3/uL (140-450); Red Cell Distribution Width 14.2 % (11.8-14.3)
[2018-04-25 17:18] LABS: Alanine Aminotransferase 12 U/L (16-61); Albumin 2.6 g/dL (3.4-5.0); Anion Gap 22 (5-15); Aspartate Aminotransferase 11 U/L (15-37); BUN/Creatinine Ratio 3.4; Blood Urea Nitrogen 24 mg/dL (7-18); Calcium 8.9 mg/dL (8.5-10.1); Carbon Dioxide 22 mmol/L (21-32); Chloride 90 mmol/L (98-107); GFR African American 12 mL/min; GFR Non-African American 10 mL/min; Glucose 300 mg/dL (74-106); Potassium 3.7 mmol/L (3.5-5.1); Sodium 134 mmol/L (136-145)
[2018-04-25 17:27] LABS: Alkaline Phosphatase 155 U/L (45-117); Bilirubin, Total 0.5 mg/dL (0.2-1.0); Total Protein 8.3 g/dL (6.4-8.2)
[2018-04-25] MEDS ORDERED: PIPERACILLIN-TAZOB 3.375GM 100 ML IV ONE (17:45)
[2018-04-25] MEDS ORDERED: SODIUM CHLORIDE 0.9% 1,000 ML IV ONE (17:46)
[2018-04-25] MEDS ORDERED: InsuLIN REG 1unit/0.01ml Soln (100units/ml) IV ONE (18:00)
[2018-04-25] MEDS ORDERED: PANTOPRAZOLE 40 MG/10 ML VIAL IV ONE (18:15)
[2018-04-25] MEDS ORDERED: ONDANSETRON HCL 4 MG/2 ML VIAL ONE (18:20)
[2018-04-25] MEDS ORDERED: MORPHINE SULF INJ 2 MG/ML SYRINGE 1ML IV PRN (18:45)
[2018-04-25] MEDS ORDERED: NITROGLYCERIN 0.4 MG SL TAB SL PRN (18:45)
[2018-04-25] MEDS ORDERED: VANCOMYCIN PER PHARMACY 0 MG IV SCH (19:00)
[2018-04-25] MEDS ORDERED: LORazepam 0.5 MG TAB PO PRN (19:00)
[2018-04-25] MEDS ORDERED: DEXTROSE (50%) 50ML SYRG IV PRN (19:00)
[2018-04-25] MEDS ORDERED: METOPROLOL TARTRATE 25 MG TAB PO ONE (19:00)
[2018-04-25] MEDS ORDERED: ACETAMINOPHEN 500 MG TAB PO PRN (19:00)
[2018-04-25] MEDS ORDERED: PROMETHAZINE HCL 25 MG/ML 1ML IV PRN (19:00)
[2018-04-25] MEDS ORDERED: HYDROcodone-ACET 5/325MG TAB PO PRN (19:00)
[2018-04-25] MEDS ORDERED: MORPHINE SULFATE 4 MG/ML SYR/VIAL IV PRN (19:00)
[2018-04-25] MEDS ORDERED: cefTRIAXone 1GM/10ml IVPUSH 10 ML IV ONE (19:00)
[2018-04-25 19:30] VITALS: BP 136/75
[2018-04-25] MEDS ORDERED: VANCOMYCIN 1GM/250ML 250 ML IV ONE (19:30)
[2018-04-25] MEDS: hydrALAZINE HCL 25 MG TAB PO SCH (21:25)
[2018-04-25] MEDS: GABAPENTIN 300 MG CAP PO SCH (21:26)
[2018-04-25] MEDS: CINACALCET HYDROCHLORIDE 30 MG TAB PO SCH (21:26)
[2018-04-25] MEDS: ACCU-CHEK COMFORT CURVE STRIP VI SCH (21:34)
[2018-04-25] MEDS: InsuLIN REG 1unit/0.01ml Soln (100units/ml) SC SCH (21:53)
[2018-04-25] MEDS: INSULIN NPH Isophane (HUMAN) 1unit/0.01ml Susp(100units/ml) SC SCH (21:54)
[2018-04-25 23:00] VITALS: BP 145/80
[2018-04-26] VITALS (7 sets, daily range): BP systolic 123–153; BP diastolic 77–89
[2018-04-26] MEDS: METOPROLOL TARTRATE 50 MG TAB PO SCH ×3 (00:21→22:02)
[2018-04-26] MEDS: ACCU-CHEK COMFORT CURVE STRIP VI SCH ×6 (00:21→20:20)
[2018-04-26] MEDS: TEMAZEPAM 15 MG CAP PO PRN ×2 (00:21→22:06)
[2018-04-26] MEDS: InsuLIN REG 1unit/0.01ml Soln (100units/ml) SC SCH ×6 (00:22→20:21)
[2018-04-26 06:35] LABS: Basophils # (auto) 0.1 uL; Basophils % (auto) 0.5 % (0.0-2.0); Eosinophils # (auto) 0.3 uL; Eosinophils % (auto) 2.7 % (0.0-7.0); Hematocrit 26.2 % (41.0-53.0); Hemoglobin 8.8 g/dL (13.5-17.5); Lymphocytes # (auto) 1.6 uL; Lymphocytes % (auto) 12.5 % (10.0-50.0); Mean Corpuscular Hemoglobin 31.4 pg (28.0-32.0); Mean Corpuscular Hgb Conc. 33.4 g/dL (32.0-36.0); Monocytes # (auto) 1.3 uL; Monocytes % (auto) 10.4 % (0.0-12.0); Neutrophils # (auto) 9.3 uL; Neutrophils % (auto) 73.9 % (37.0-80.0); Platelet Count (auto) 553 10^3/uL (140-450); Red Blood Cells 2.79 10^6/uL (4.5-5.90); Red Cell Distribution Width 13.9 % (11.8-14.3); White Blood Cell 12.6 10^3/uL (4.4-10.8)
[2018-04-26 06:50] LABS: Alanine Aminotransferase 11 U/L (16-61); Albumin 2.3 g/dL (3.4-5.0); Anion Gap 14 (5-15); Aspartate Aminotransferase 8 U/L (15-37); BUN/Creatinine Ratio 3.7; Blood Urea Nitrogen 32 mg/dL (7-18); Calcium 8.3 mg/dL (8.5-10.1); Carbon Dioxide 28 mmol/L (21-32); Chloride 95 mmol/L (98-107); GFR African American 9 mL/min; GFR Non-African American 7 mL/min; Glucose 118 mg/dL (74-106); Potassium 3.2 mmol/L (3.5-5.1); Sodium 137 mmol/L (136-145)
[2018-04-26 06:53] LABS: Bilirubin, Total 0.4 mg/dL (0.2-1.0); Total Protein 7.8 g/dL (6.4-8.2)
[2018-04-26 06:54] LABS: Alkaline Phosphatase 148 U/L (45-117)
[2018-04-26] MEDS: INSULIN NPH Isophane (HUMAN) 1unit/0.01ml Susp(100units/ml) SC SCH ×2 (07:00→22:02)
[2018-04-26] MEDS: SEVELAMER 800 MG TAB PO SCH ×3 (08:17→17:26)
[2018-04-26] MEDS: cefTRIAXone 1GM/10ml IVPUSH 10 ML IV SCH (08:25)
[2018-04-26 08:48] LABS: Alcohol, Urine < 3.0 mg/dL (0-5); Amphetamine Screen, Urine NEGATIVE (NEGATIVE); Barbiturate Scree,Urine NEGATIVE (NEGATIVE); Benzodiazephine Screen, Urine NEGATIVE (NEGATIVE); Cannabinoid Screen, Urine NEGATIVE (NEGATIVE); Cocaine Screen, Urine NEGATIVE (NEGATIVE); Opiate Scree,Urine NEGATIVE (NEGATIVE); Phencyclidine Screen, Urine NEGATIVE (NEGATIVE)
[2018-04-26] MEDS: LOSARTAN POTASSIUM 50 MG TAB PO SCH (10:00)
[2018-04-26] MEDS: amLODIPine BESYLATE 5 MG TAB PO SCH (10:00)
[2018-04-26] MEDS: hydrALAZINE HCL 25 MG TAB PO SCH ×2 (10:00→22:01)
[2018-04-26] MEDS: PANTOPRAZOLE 40 MG TAB PO SCH (12:35)
[2018-04-26] MEDS: CALCITRIOL 0.25 MCG CAP PO SCH (12:40)
[2018-04-26] MEDS ORDERED: ENOXAPARIN SOD 30 MG/0.3 ML SYRINGE SC ONE (16:30)
[2018-04-26] MEDS ORDERED: MORPHINE SULF INJ 2 MG/ML SYRINGE 1ML IV PRN (16:30)
[2018-04-26] MEDS: CINACALCET HYDROCHLORIDE 30 MG TAB PO SCH (22:00)
[2018-04-26] MEDS: GABAPENTIN 300 MG CAP PO SCH (22:00)
[2018-04-27] MEDS: ACCU-CHEK COMFORT CURVE STRIP VI SCH ×6 (00:04→20:33)
[2018-04-27] MEDS: InsuLIN REG 1unit/0.01ml Soln (100units/ml) SC SCH ×6 (00:05→20:33)
[2018-04-27 05:23] LABS: Basophils # (auto) 0.1 uL; Basophils % (auto) 0.5 % (0.0-2.0); Eosinophils # (auto) 0.3 uL; Monocytes # (auto) 1.5 uL; Red Cell Distribution Width 13.9 % (11.8-14.3); White Blood Cell 14.1 10^3/uL (4.4-10.8)
[2018-04-27 05:30] LABS: Eosinophils % (auto) 2.1 % (0.0-7.0); Hematocrit 26.2 % (41.0-53.0); Hemoglobin 8.8 g/dL (13.5-17.5); Lymphocytes # (auto) 1.6 uL; Lymphocytes % (auto) 11.3 % (10.0-50.0); Mean Corpuscular Hemoglobin 31.3 pg (28.0-32.0); Mean Corpuscular Hgb Conc. 33.7 g/dL (32.0-36.0); Mean Corpuscular Volume 93.1 fL (80.0-100.0); Monocytes % (auto) 10.5 % (0.0-12.0); Neutrophils # (auto) 10.6 uL; Neutrophils % (auto) 75.6 % (37.0-80.0); Platelet Count (auto) 535 10^3/uL (140-450); Red Blood Cells 2.81 10^6/uL (4.5-5.90)
[2018-04-27 05:43] LABS: Albumin 2.4 g/dL (3.4-5.0); Calcium 8.9 mg/dL (8.5-10.1); Potassium 3.5 mmol/L (3.5-5.1)
[2018-04-27 05:51] LABS: BUN/Creatinine Ratio 3.7; Bilirubin, Total 0.4 mg/dL (0.2-1.0); Total Protein 7.8 g/dL (6.4-8.2)
[2018-04-27 05:53] VITALS: BP 127/86
[2018-04-27] MEDS: INSULIN NPH Isophane (HUMAN) 1unit/0.01ml Susp(100units/ml) SC SCH ×3 (06:48→22:25)
[2018-04-27 08:00] VITALS: BP 131/82
[2018-04-27] MEDS: SEVELAMER 800 MG TAB PO SCH ×3 (08:26→17:53)
[2018-04-27 09:00] VITALS: BP 151/96
[2018-04-27] MEDS: cefTRIAXone 1GM/10ml IVPUSH 10 ML IV SCH (09:25)
[2018-04-27] MEDS: ENOXAPARIN SOD 30 MG/0.3 ML SYRINGE SC SCH (09:25)
[2018-04-27] MEDS: CALCITRIOL 0.25 MCG CAP PO SCH (09:26)
[2018-04-27] MEDS: PANTOPRAZOLE 40 MG TAB PO SCH (09:26)
[2018-04-27] MEDS: LOSARTAN POTASSIUM 50 MG TAB PO SCH (10:00)
[2018-04-27] MEDS: amLODIPine BESYLATE 5 MG TAB PO SCH (10:00)
[2018-04-27] MEDS: METOPROLOL TARTRATE 50 MG TAB PO SCH ×2 (10:00→22:11)
[2018-04-27] MEDS: hydrALAZINE HCL 25 MG TAB PO SCH ×2 (10:00→22:11)
[2018-04-27 13:00] VITALS: BP 145/98
[2018-04-27 18:06] VITALS: BP 144/97
[2018-04-27 22:00] VITALS: BP 136/91
[2018-04-27] MEDS: GABAPENTIN 300 MG CAP PO SCH ×2 (22:00→22:11)
[2018-04-27] MEDS: CINACALCET HYDROCHLORIDE 30 MG TAB PO SCH (22:10)
[2018-04-28] MEDS: ACCU-CHEK COMFORT CURVE STRIP VI SCH ×4 (00:20→11:47)
[2018-04-28] MEDS: TEMAZEPAM 15 MG CAP PO PRN (00:24)
[2018-04-28] MEDS: InsuLIN REG 1unit/0.01ml Soln (100units/ml) SC SCH ×4 (03:39→12:25)
[2018-04-28 05:13] VITALS: BP 131/81
[2018-04-28 07:40] LABS: Basophils # (auto) 0.1 uL; Basophils % (auto) 0.3 % (0.0-2.0); Eosinophils # (auto) 0.3 uL; Hemoglobin 8.6 g/dL (13.5-17.5); Mean Corpuscular Hgb Conc. 32.7 g/dL (32.0-36.0); Monocytes # (auto) 1.6 uL
[2018-04-28 07:42] LABS: Eosinophils % (auto) 1.5 % (0.0-7.0); Hematocrit 26.3 % (41.0-53.0); Lymphocytes # (auto) 2.1 uL; Lymphocytes % (auto) 12.9 % (10.0-50.0); Mean Corpuscular Hemoglobin 30.2 pg (28.0-32.0); Mean Corpuscular Volume 92.6 fL (80.0-100.0); Monocytes % (auto) 9.6 % (0.0-12.0); Neutrophils # (auto) 12.5 uL; Neutrophils % (auto) 75.7 % (37.0-80.0); Platelet Count (auto) 519 10^3/uL (140-450); Red Blood Cells 2.84 10^6/uL (4.5-5.90); Red Cell Distribution Width 13.9 % (11.8-14.3); White Blood Cell 16.5 10^3/uL (4.4-10.8)
[2018-04-28 08:00] VITALS: BP 119/81
[2018-04-28 08:03] LABS: Albumin 2.5 g/dL (3.4-5.0); BUN/Creatinine Ratio 3.6; Bilirubin, Total 0.5 mg/dL (0.2-1.0); Calcium 8.9 mg/dL (8.5-10.1); Potassium 3.2 mmol/L (3.5-5.1)
[2018-04-28] MEDS: cefTRIAXone 1GM/10ml IVPUSH 10 ML IV SCH (08:43)
[2018-04-28] MEDS: CALCITRIOL 0.25 MCG CAP PO SCH (08:43)
[2018-04-28] MEDS: PANTOPRAZOLE 40 MG TAB PO SCH (08:44)
[2018-04-28] MEDS: METOPROLOL TARTRATE 50 MG TAB PO SCH (08:44)
[2018-04-28] MEDS: hydrALAZINE HCL 25 MG TAB PO SCH (08:44)
[2018-04-28] MEDS: LOSARTAN POTASSIUM 50 MG TAB PO SCH (08:44)
[2018-04-28] MEDS: SEVELAMER 800 MG TAB PO SCH ×2 (08:44→12:25)
[2018-04-28] MEDS: ENOXAPARIN SOD 30 MG/0.3 ML SYRINGE SC SCH (08:45)
[2018-04-28] MEDS: amLODIPine BESYLATE 5 MG TAB PO SCH (08:45)
[2018-04-28 09:26] VITALS: BP 119/81
[2018-04-28 11:21] VITALS: BP 114/76
[2018-04-28 13:28] VITALS: BP 114/76
== END 2018-04-28 15:15 | disposition home or self-care (01) | DRG 871 ==
LOC: ER 15:47 → TELE-WESTW 15:48
PROVIDERS: ADMIT Internal Medicine; ATTEND Family Medicine
DX: A41.9 Sepsis, unspecified organism (principal); E10.10 Type 1 diabetes mellitus with ketoacidosis without coma; N18.6 End stage renal disease; I12.0 Hypertensive chronic kidney disease with stage 5 chronic kidney disease or end stage renal disease; D63.8 Anemia in other chronic diseases classified elsewhere; E10.22 Type 1 diabetes mellitus with diabetic chronic kidney disease; E66.9 Obesity, unspecified; H26.9 Unspecified cataract; E10.319 Type 1 diabetes mellitus with unspecified diabetic retinopathy without macular edema; E10.40 Type 1 diabetes mellitus with diabetic neuropathy, unspecified; F12.90 Cannabis use, unspecified, uncomplicated; Z79.4 Long term (current) use of insulin; Z79.899 Other long term (current) drug therapy; Z82.0 Family history of epilepsy and other diseases of the nervous system; Z82.49 Family history of ischemic heart disease and other diseases of the circulatory system; Z83.3 Family history of diabetes mellitus; Z99.2 Dependence on renal dialysis; Z68.34 Body mass index [BMI] 34.0-34.9, adult
CPT/HCPCS: 36415; 36600; 71045; 80053; 80202; 80307; 82010; 82550; 82805; 82962; 83036; 83605; 83880; 84443; 84484; 85025; 85379; 85652; 87040; 87081; 87086; 93005; 93306; 93970; 96374; 96375; C9113; J0696; J1815; J2405; J2543

== ENCOUNTER 2018-06-12 16:56 | Emergency (ER) | payer MEDICARE, MEDICAID ==
[~2018-06-12] VITALS: Ht 165.1 cm; Wt 80.7 kg
[~2018-06-12 16:56] MED LIST changes: +AMLO5TAB13 PO; -AMLO5TAB2 PO; +LOSA-49 PO; -LOSA100T27 PO
[2018-06-12 18:27] LABS: Basophils # (auto) 0 uL; Eosinophils # (auto) 0.1 uL; Mean Corpuscular Hemoglobin 28.4 pg (28.0-32.0); Mean Corpuscular Hgb Conc. 31.5 g/dL (32.0-36.0); Monocytes # (auto) 0.9 uL; Nucleated Red Blood Cells % 0.1 %; Red Cell Distribution Width 15.5 % (11.8-14.3); White Blood Cell 7.9 10^3/uL (4.4-10.8)
[2018-06-12 18:29] LABS: Basophils % (auto) 0.4 % (0.0-2.0); Hematocrit 19.5 % (41.0-53.0); Lymphocytes # (auto) 1.9 uL; Lymphocytes % (auto) 24.3 % (10.0-50.0); Mean Corpuscular Volume 90.1 fL (80.0-100.0); Monocytes % (auto) 11.2 % (0.0-12.0); Neutrophils % (auto) 63.1 % (37.0-80.0); Platelet Count (auto) 490 10^3/uL (140-450); Red Blood Cells 2.17 10^6/uL (4.5-5.90)
[2018-06-12 18:40] LABS: Hemoglobin 6.2 g/dL (13.5-17.5)
[2018-06-12 18:43] LABS: Albumin 1.8 g/dL (3.4-5.0); BUN/Creatinine Ratio 4.7; Calcium 8.2 mg/dL (8.5-10.1); Potassium 3.9 mmol/L (3.5-5.1)
[2018-06-12 18:45] LABS: Bilirubin, Total 0.3 mg/dL (0.2-1.0)
[2018-06-12 21:12] LABS: INR 1.09 (0.9-1.15); Prothrombin Time 11.6 sec (9.27-12.13)
[2018-06-13] VITALS: BP 115/69
[2018-06-13 00:15] VITALS: BP 122/85
[2018-06-13 00:48] VITALS: BP 116/80
[2018-06-13 01:05] VITALS: BP 126/78
[2018-06-13 01:20] VITALS: BP 117/74
[2018-06-13 01:55] VITALS: BP 117/80
== END 2018-06-13 02:34 | disposition home or self-care (01) ==
LOC: ER 17:03
DX: E11.22 Type 2 diabetes mellitus with diabetic chronic kidney disease (principal); I12.0 Hypertensive chronic kidney disease with stage 5 chronic kidney disease or end stage renal disease; N18.6 End stage renal disease; D63.1 Anemia in chronic kidney disease; Z99.2 Dependence on renal dialysis; Z79.4 Long term (current) use of insulin
CPT/HCPCS: 36415; 36430; 80053; 83735; 85025; 85610; 85730; 86850; 86900; 86901; 86920; 93005; 99285; P9016

== ENCOUNTER 2018-08-06 21:06 | Emergency (ER) | payer MEDICARE, MEDICAID ==
[~2018-08-06] VITALS: Ht 165.1 cm; Wt 76.7 kg
[2018-08-06] MEDS ORDERED: cloNIDine HCL 0.1 MG TAB ONE (21:39)
[2018-08-06] MEDS ORDERED: cloNIDine HCL 0.1 MG TAB PO ONE (21:45)
[2018-08-06 22:26] LABS: Basophils # (auto) 0 uL; Basophils % (auto) 0.5 % (0.0-2.0); Eosinophils # (auto) 0.3 uL; Eosinophils % (auto) 3.4 % (0.0-7.0); Hematocrit 27.5 % (41.0-53.0); Hemoglobin 8.8 g/dL (13.5-17.5); Lymphocytes # (auto) 1.9 uL; Lymphocytes % (auto) 24.1 % (10.0-50.0); Mean Corpuscular Hemoglobin 29.1 pg (28.0-32.0); Mean Corpuscular Hgb Conc. 32.1 g/dL (32.0-36.0); Mean Corpuscular Volume 90.5 fL (80.0-100.0); Monocytes # (auto) 0.7 uL; Monocytes % (auto) 8.8 % (0.0-12.0); Neutrophils # (auto) 4.9 uL; Neutrophils % (auto) 63.2 % (37.0-80.0); Platelet Count (auto) 447 10^3/uL (140-450); Red Blood Cells 3.04 10^6/uL (4.5-5.90); White Blood Cell 7.8 10^3/uL (4.4-10.8)
[2018-08-06 22:41] LABS: Albumin 2.6 g/dL (3.4-5.0); BUN/Creatinine Ratio 3.9; Calcium 9.1 mg/dL (8.5-10.1); Potassium 4.4 mmol/L (3.5-5.1)
[2018-08-06 22:43] LABS: Bilirubin, Total 0.2 mg/dL (0.2-1.0); Total Protein 8.5 g/dL (6.4-8.2)
[2018-08-06 22:47] LABS: INR 0.99 (0.9-1.15); Partial Thromboplastin Time 29.5 sec (23.78-33.04); Prothrombin Time 10.6 sec (9.27-12.13)
[2018-08-07 01:08] VITALS: BP 134/93
== END 2018-08-07 01:47 | disposition home or self-care (01) ==
LOC: ER 21:06
DX: T82.49XA Other complication of vascular dialysis catheter, initial encounter (principal); I12.0 Hypertensive chronic kidney disease with stage 5 chronic kidney disease or end stage renal disease; E11.22 Type 2 diabetes mellitus with diabetic chronic kidney disease; N18.6 End stage renal disease; E11.649 Type 2 diabetes mellitus with hypoglycemia without coma; Z99.2 Dependence on renal dialysis; Z79.4 Long term (current) use of insulin; Z79.899 Other long term (current) drug therapy; Y92.89 Other specified places as the place of occurrence of the external cause
CPT/HCPCS: 36415; 71046; 80053; 85025; 85610; 85730